=== PATIENT | female | born 1980 | race Caucasian/White ===

== ENCOUNTER 2023-07-12 04:23 | Day surgery (SDC) | payer OTHER ==
[2023-07-03 10:53] VITALS: BMI 25.2
[2023-07-12] MEDS ORDERED: ACETAMINOPHEN 325 MG TABLET (FP) PO PRN (12:37)
[2023-07-12] MEDS ORDERED: IBUPROFEN 400 MG TABLET (FP) PO PRN (12:37)
[2023-07-12] MEDS ORDERED: ONDANSETRON 4 MG/2 ML VIAL IVPUSH PRN (12:38)
[2023-07-12] MEDS ORDERED: MIDAZOLAM HCL 2 MG/2 ML SINGLE DOSE VIAL ONE (14:01)
[2023-07-12] MEDS ORDERED: IBUPROFEN 800 MG/8 ML IJ IVPB PRN (15:04)
[2023-07-12] MEDS ORDERED: oxyCODONE HCL 5 MG TABLET PO PRN (15:04)
[2023-07-12] MEDS ORDERED: LACTATED RINGERS SOLUTION 1,000 ML IV SCH (15:15)
[2023-07-12] MEDS ORDERED: IBUPROFEN 800 MG/8 ML IJ IVPB ONE (15:55)
[2023-07-12 16:40] VITALS: RESP 18
[2023-07-12 17:33] VITALS: BP 142/77; PULSE 79; TEMP 97.9
== END 2023-07-12 17:25 | disposition home or self-care (01) ==
LOC: JASU-SURG 04:23
PROVIDERS: ATTEND Obstetrics & Gynecology
PROC: 0UDB8ZZ Extraction of Endometrium, Via Natural or Artificial Opening Endoscopic (ICD-10-PCS; principal; 2023-07-12 14:00)
DX: N92.0 Excessive and frequent menstruation with regular cycle (principal); N93.8 Other specified abnormal uterine and vaginal bleeding
CPT/HCPCS: 81025; 88305-TC; 94760